=== PATIENT | female | born 1950 | race Two or more races ===

== ENCOUNTER → 2017-05-22 | Emergency (ER) | payer OTHER ==
[~2017-05-22] MED LIST: ZITHROMAX500 MG PO; ZYNCOF 20-400120 ML PO; ZYRTEC10 MG PO
== END | disposition left against medical advice (07) ==
LOC: ER 01:50
DX: Z53.20 Procedure and treatment not carried out because of patient's decision for unspecified reasons (principal)

== ENCOUNTER 2021-04-21 10:58 | Emergency (ER) | payer OTHER ==
[~2021-04-21] VITALS: Ht 157.5 cm; Wt 44.5 kg
[2021-04-21] MEDS ORDERED: ZESTRIL5 MG PO (11:09)
[2021-04-21] MEDS ORDERED: CRESTOR40 MG PO (11:09)
[2021-04-21] MEDS ORDERED: PROTONIX40 M1 PO (11:09)
[2021-04-21] MEDS ORDERED: PLAVIX75 MG PO (11:15)
== END 2021-04-21 13:39 | disposition home or self-care (01) ==
LOC: ER 10:58
DX: S40.811A Abrasion of right upper arm, initial encounter (principal); S50.01XA Contusion of right elbow, initial encounter; S20.213A Contusion of bilateral front wall of thorax, initial encounter; S80.02XA Contusion of left knee, initial encounter; S80.01XA Contusion of right knee, initial encounter; W18.09XA Striking against other object with subsequent fall, initial encounter; Y93.89 Activity, other specified; Y92.018 Other place in single-family (private) house as the place of occurrence of the external cause; Y99.8 Other external cause status

== ENCOUNTER 2022-11-07 07:09 | Outpatient (CLI) | payer OTHER ==
[~2022-11-07 07:09] MED LIST changes: +CRESTOR40 MG PO; +PLAVIX75 MG PO; +PROTONIX40 M1 PO; +ZESTRIL5 MG PO
== END 2022-11-07 07:11 | disposition home or self-care (01) ==
LOC: NUCLEAR 07:09
PROVIDERS: ATTEND Internal Medicine Cardiovascular Disease
DX: I25.118 Atherosclerotic heart disease of native coronary artery with other forms of angina pectoris (principal)
CPT/HCPCS: 78452; 93017; A9500; J0153

== ENCOUNTER 2022-11-11 08:08 | Outpatient (CLI) | payer OTHER | END 2022-11-11 08:17 | disposition home or self-care (01) | LOC: MRI 08:08 | PROVIDERS: ATTEND Psychiatry & Neurology Neurology | DX: H53.40 Unspecified visual field defects (principal); Z86.73 Personal history of transient ischemic attack (TIA), and cerebral infarction without residual deficits | CPT/HCPCS: 70551 ==

== ENCOUNTER 2024-10-21 07:51 | Emergency (ER) | payer OTHER ==
[~2024-10-21] VITALS: Ht 157.5 cm; Wt 47.2 kg
[2024-10-21] MEDS ORDERED: SOLIQUA 100 UNIT3 ML SUBCUTANEO (08:09)
[2024-10-21] MEDS ORDERED: CLINDAMYCIN PHOSPHATE 150 MG/ML (600mg) IV STA (08:18)
[2024-10-21] MEDS ORDERED: ACETAMINOPHEN 500 MG GEL..CAP PO STA (08:19)
[2024-10-21] MEDS ORDERED: ACETAMINOPHEN 500 MG GEL..CAP PO ONE (08:23)
[2024-10-21] MEDS ORDERED: CLINDAMYCIN PHOSPHATE 150 MG/ML (300mg) ONE (08:23)
[2024-10-21 09:13] LABS: BASO % 1.1 % (0.1-1.2); EOS # 0.37 (0.04-0.54); HEMATOCRIT 43.3 % (34.1-44.9); LYMPH # 1.42 (1.18-3.74); LYMPH % 15.3 % (19.3-53.1); MEAN CORPUSCULAR HEMOGLOBIN 26.8 pg (25.6-32.2); MONO # 0.74 (0.24-0.82); NEUT # 6.61 (1.56-6.13); NEUT % 71.3 % (34.0-71.1); PLATELET COUNT 386 K/uL (163-369); RED BLOOD COUNT 5.22 M/uL (3.93-5.22); RED CELL DISTRIBUTION WIDTH 13.1 % (11.6-14.4)
[2024-10-21 09:56] LABS: CALCIUM 9.5 mg/dL (8.5-10.1); CREATININE SERUM 0.89 mg/dL (0.55-1.02); POTASSIUM 3.82 mEq/L (3.5-5.1); URIC ACID 1.9 mg/dL (2.5-7.5)
[2024-10-21] MEDS ORDERED: DEXAMETHASONE SODIUM PHOSPHATE 4 MG/ML VIAL IV STA (09:58)
[2024-10-21] MEDS ORDERED: DEXAMETHASONE SODIUM PHOSPHATE 4 MG/ML VIAL ONE (10:06)
[2024-10-21 10:14] LABS: ERYTHROCYTE SEDIMENTATION RATE 50 mm/hr (0-30)
== END 2024-10-21 11:37 | disposition home or self-care (01) ==
LOC: ER 08:00
DX: M19.90 Unspecified osteoarthritis, unspecified site (principal); Z88.6 Allergy status to analgesic agent; Z91.013 Allergy to seafood; I10 Essential (primary) hypertension; E11.9 Type 2 diabetes mellitus without complications; Z79.4 Long term (current) use of insulin
CPT/HCPCS: 36415; 73560; 96365; 99283; J1100; J3490